=== PATIENT | female | born 1950 | race African-American/Black ===

== ENCOUNTER 2018-03-18 19:33 | Emergency (ER) | payer MEDICARE ==
[~2018-03-18] VITALS: Ht 167.6 cm; Wt 85.7 kg
[~2018-03-18 19:33] MED LIST: ASCO10002 PO; CHOL10003 PO; IBUP200C9 PO; NAPR220T70 PO; WARF-78 PO
[2018-03-18 20:25] LABS: BASO % 1 % (0-3); EOS % 1 % (0-3); HEMOGLOBIN 13.6 g/dL (12.0-15.5); LYMPH # 0.6 x10^3/uL (1.0-4.8); LYMPH % 19 % (24-48); MEAN CORPUSCULAR HEMOGLOBIN 28 pg (25-35); MEAN CORPUSCULAR HGB CONC 33 g/dL (31-37); MEAN CORPUSCULAR VOLUME 84 fL (79-100); MONO # 0.1 x10^3/uL (0.0-1.1); MONO % 2 % (0-9); NEUT # 2.6 x10^3uL (1.8-7.7); NEUT % 78 % (31-73); PLATELET COUNT 245 x10^3/uL (140-400); RED BLOOD COUNT 4.85 x10^6/uL (3.50-5.40); RED CELL DISTRIBUTION WIDTH 15.9 % (11.5-14.5); WHITE BLOOD COUNT 3.3 x10^3/uL (4.0-11.0)
[2018-03-18 20:58] LABS: CALCIUM 9.4 mg/dL (8.5-10.1); CREATININE 1.4 mg/dL (0.6-1.0); GFR 45.1; POTASSIUM 4.2 mmol/L (3.5-5.1)
[2018-03-18] MEDS ORDERED: IV NORMAL SALINE 500ML BAG 500 ML IV ONE (21:15)
[2018-03-18 21:30] VITALS: BP 135/70
--- NOTE | 2018-03-18 21:52 | RAD ---
Examination: VENOUS LOWER EXTREMITY RIGHT History: RLE PAIN, ATTENTION TO POP FOSSA ALSO Comparison/Correlation: None Findings: Right lower extremity venous duplex ultrasound exam was performed. Spectral Doppler, color Doppler, and grayscale imaging was performed. Compression and augmentation utilized. Right common femoral vein, proximal profunda femoris, superficial femoral vein, popliteal vein, posterior tibial veins, and greater saphenous vein are normal. No evidence of thrombus. Normal compressibility, phasicity, and flow. There is no popliteal cyst identified. Popliteal fossa is unremarkable. Impression: No evidence of right lower extremity deep venous thrombus. Electronically signed by: Andrea Delgado MD (03/18/2018 9:49 PM) [facility]
--- NOTE | 2018-03-19 04:25 | PHYS DOC ---
Past Medical History Past Medical History: No Pertinent History Past Surgical History: Hysterectomy Additional Past Surgical Histo: L KNEE, BACK, R FOOT Alcohol Use: Occasionally Drug Use: None Adult General Chief Complaint Chief Complaint: ABNORMAL LABS [facility] HPI Patient is a 67 year old female who presents with right leg pain. Patient states she was evaluated by her primary care physician earlier today. She has some sort of lab work completed which apparently was abnormal. She cannot say what the lab work was but she describes that there was some concern about a possible DVT. The patient had presented complaining of some pain in the right calf and posterior aspect of the right knee. She did not have any trauma. C/o pain primarily in the popliteal fossa but also in the calf muscle. No prior hx of thrombosis. Not on HRT. Patient is known to have osteoarthritis. She does receive injections in the affected knee. No fever or chills. Review of Systems Review of Systems Constitutional: Denies fever or chills Eyes: Denies HENT: Denies Respiratory: Denies Cardiovascular: No additional information not addressed in HPI GI: Denies abdominal pain Integument: Denies rash or skin lesions Neurologic: Denies headache All other systems were reviewed and found to be within normal limits, except as documented in this note. Current Medications Current Medications Current Medications Medications (Trade) Dose Ordered Sig/Xu Start Time Stop Time Status Last Admin Dose Admin Sodium Chloride 500 ml @ 500 mls/hr 1X ONCE 03/18/18 21:15 03/18/18 22:14 DC 03/18/18 21:16 500 MLS/HR Allergies Allergies Allergies Coded Allergies Type Severity Reaction Last Updated Verified nickel Allergy Severe Itching 07/12/14 Yes Physical Exam Physical Exam Constitutional: Well developed, well nourished, no acute distress, non-toxic appearance HENT: Normocephalic, atraumatic, bilateral external ears normal, oropharynx moist Eyes: PERRLA, EOMI, conjunctiva normal Neck: Normal range of motion Cardiovascular:Heart rate regular rhythm, no murmur Lungs & Thorax: Bilateral breath sounds clear to auscultation Skin: Warm, dry, no erythema, no rash Back: No tenderness Extremities: No edema. mild tenderness to manipulation of the right calf and over the popliteal fossa. no swelling. many superficial varicosities present. 2+ dp pulses. + passive ROM without pain worse than baseline Neurologic: Alert and oriented X 3, normal motor function Psychologic: Affect normal Current Patient Data Vital Signs Vital Signs Date Time Temp Pulse Resp B/P (MAP) Pulse Ox O2 Delivery O2 Flow Rate FiO2 03/18/18 21:30 65 17 135/70 (91) 98 Room Air 03/18/18 19:44 99.2 99.2 Lab Values Laboratory Tests Test 03/18/18 19:50 03/18/18 20:40 White Blood Count 3.3 x10^3/uL (4.0-11.0) L Red Blood Count 4.85 x10^6/uL (3.50-5.40) Hemoglobin 13.6 g/dL (12.0-15.5) Hematocrit 41.0 % (36.0-47.0) Mean Corpuscular Volume 84 fL (79-100) Mean Corpuscular Hemoglobin 28 pg (25-35) Mean Corpuscular Hemoglobin Concent 33 g/dL (31-37) Red Cell Distribution Width 15.9 % (11.5-14.5) H Platelet Count 245 x10^3/uL (140-400) Neutrophils (%) (Auto) 78 % (31-73) H Lymphocytes (%) (Auto) 19 % (24-48) L Monocytes (%) (Auto) 2 % (0-9) Eosinophils (%) (Auto) 1 % (0-3) Basophils (%) (Auto) 1 % (0-3) Neutrophils # (Auto) 2.6 x10^3uL (1.8-7.7) Lymphocytes # (Auto) 0.6 x10^3/uL (1.0-4.8) L Monocytes # (Auto) 0.1 x10^3/uL (0.0-1.1) Eosinophils # (Auto) 0.0 x10^3/uL (0.0-0.7) Basophils # (Auto) 0.0 x10^3/uL (0.0-0.2) Sodium Level 144 mmol/L (136-145) Potassium Level 4.2 mmol/L (3.5-5.1) Chloride Level 108 mmol/L (98-107) H Carbon Dioxide Level 27 mmol/L (21-32) Anion Gap 9 (6-14) Blood Urea Nitrogen 20 mg/dL (7-20) Creatinine 1.4 mg/dL (0.6-1.0) H Estimated GFR (Cockcroft-Gault) 45.1 Glucose Level 129 mg/dL (70-99) H Calcium Level 9.4 mg/dL (8.5-10.1) D-Dimer (Nathalie) 0.46 ug/mlFEU (0.00-0.50) Laboratory Tests 03/18/18 19:50 Laboratory Tests 03/18/18 19:50 EKG EKG [] Radiology/Procedures Radiology/Procedures Doppler US of right LE is negative for DVT. No Roberson's cyst seen Course & Med Decision Making Course & Med Decision Making Pertinent Labs and Imaging studies reviewed. (See chart for details) Patient was evaluated in the emergency department to rule out DVT. This diagnosis was not found. The patient has no fever. Her vital signs were normal. She did not have pain and was able to passively range of motion the joint in question. No suspicion for septic joint based on her physical exam and history of present illness. Patient was discharged to home. She was advised to follow- up with her primary care doctor or return to the ER for any new or worsening symptoms. Dragon Disclaimer Dragon Disclaimer This electronic medical record was generated, in whole or in part, using a voice recognition dictation system. Departure Departure Impression: Primary Impression: Primary localized osteoarthritis of left knee Disposition: HOME, SELF-CARE Condition: GOOD Patient Instructions: Knee Pain, Qqgl-ng-Stdr Additional Instructions: Your Creatinine was mildly elevated this evening. This could be from dehydration or from kidney disease. Have this test rechecked at your primary physician's office. Your ultrasound of the right lower extremity did not reveal DVT or cyst. Your d dimer was normal. RAZA LEIVA DO Mar 19, 2018 04:25
== END 2018-03-18 22:30 | disposition home or self-care (01) ==
LOC: ER 19:33
DX: M17.12 Unilateral primary osteoarthritis, left knee (principal); R79.89 Other specified abnormal findings of blood chemistry; Z90.710 Acquired absence of both cervix and uterus; Z91.048 Other nonmedicinal substance allergy status
CPT/HCPCS: 36415; 80048; 85025; 85379; 93971; 99285; J7040; 96360

== ENCOUNTER → 2018-06-01 | Outpatient (CLI) | payer MEDICARE ==
[~2018-06-01] MED LIST changes: +CALC-77 PO; +CALC500T30 PO; +CYCL5TAB PO; +ETOD400T PO; +TRAM50TA PO
[2018-06-01 09:11] LABS: BILIRUBIN,URINE SMALL (NEG); CLARITY,URINE CLEAR; COLOR,URINE YELLOW; NITRITE,URINE NEGATIVE (NEG); PH,URINE 5.5; PROTEIN,URINE NEGATIVE (NEG-TRACE); UROBILINOGEN,URINE 0.2 mg/dL (0.2 mg/dL)
[2018-06-01 09:49] LABS: BASO % 1 % (0-3); EOS # 0.2 x10^3/uL (0.0-0.7); EOS % 5 % (0-3); HEMATOCRIT 36.5 % (36.0-47.0); HEMOGLOBIN 12.2 g/dL (12.0-15.5); LYMPH # 1.8 x10^3/uL (1.0-4.8); LYMPH % 42 % (24-48); MEAN CORPUSCULAR HEMOGLOBIN 28 pg (25-35); MEAN CORPUSCULAR HGB CONC 33 g/dL (31-37); MEAN CORPUSCULAR VOLUME 82 fL (79-100); MONO # 0.3 x10^3/uL (0.0-1.1); MONO % 8 % (0-9); NEUT % 45 % (31-73); PLATELET COUNT 285 x10^3/uL (140-400); RED BLOOD COUNT 4.43 x10^6/uL (3.50-5.40); RED CELL DISTRIBUTION WIDTH 15.5 % (11.5-14.5); WHITE BLOOD COUNT 4.4 x10^3/uL (4.0-11.0)
[2018-06-01 09:58] LABS: PROTHROMBIN TIME PATIENT 13.3 SEC (11.7-14.0)
[2018-06-01 10:08] LABS: ALBUMIN 3.3 g/dL (3.4-5.0); CREATININE 1.1 mg/dL (0.6-1.0); GFR 59.6; POTASSIUM 4.1 mmol/L (3.5-5.1)
[2018-06-01 10:17] LABS: SQUAMOUS EPITHELIAL CELL,UR FEW /LPF
[2018-06-01 10:18] LABS: BACTERIA,URINE FEW /HPF (0-FEW); RBC,URINE OCC /HPF (0-2)
--- NOTE | 2018-06-01 13:58 | EKG ---
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
--- NOTE | 2018-06-01 18:11 | RAD ---
EXAM: PA and Lateral Views of the Chest DATE: 06/01/2018 2:07 PM INDICATION: JOINT PREHAB CLASS-HX TOBACCO ABUSE/ RT. KNEE REPLACEMENT COMPARISON: No Prior FINDINGS/ IMPRESSION: The heart is not enlarged. Mediastinal and hilar contours are normal. No focal parenchymal airspace opacity. A few calcified granuloma are seen within the left lung. No lobar consolidation. No pleural effusion or pneumothorax. Electronically signed by: Brandon Pyle MD (06/01/2018 6:06 PM) [facility]
[2018-06-02 01:31] LABS: HEMOGLOBIN A1C 5.8 % (4.8-5.6)
== END | disposition home or self-care (01) ==
LOC: SURGPAT 14:19
PROVIDERS: ATTEND Orthopaedic Surgery
DX: Z01.818 Encounter for other preprocedural examination (principal); M17.11 Unilateral primary osteoarthritis, right knee; J84.10 Pulmonary fibrosis, unspecified; Z87.891 Personal history of nicotine dependence
CPT/HCPCS: 36415; 71046; 80048; 81001; 82040; 82306; 83036; 85025; 85610; 85651; 85730; 87086; 87641; 93005

== ENCOUNTER 2018-06-16 06:27 | Inpatient (IN) | payer MEDICARE ==
[2018-06-16] VITALS (7 sets, daily range): BP systolic 122–136; BP diastolic 71–79
[~2018-06-16] VITALS: Ht 167.6 cm; Wt 88.5 kg
[~2018-06-16 06:27] MED LIST changes: +HYDROcodone/APAP 7.5/325MG 1 TAB TABLET PO PRN; +MORPHINE SULFATE 5 MG, KETOROLAC 30MG VIAL 30 MG, ROPIVacaine 0.5% PF 60 ML, EPINEPHrin... INT ART ONE; +TRANEXAMIC ACID 1,000 MG in IV NS 50ML -- 1ST BAG INJ ONE
[2018-06-16] MEDS ORDERED: ONDANSETRON PF 4 MG/2 ML VIAL. IV PRN (07:00)
[2018-06-16] MEDS ORDERED: LIDOCAINE 1% PF 2 ML VIAL. ID PRN (07:00)
[2018-06-16] MEDS ORDERED: PROCHLORPERAZINE 10 MG/2 ML VIAL. IV PRN (07:00)
[2018-06-16] MEDS ORDERED: IV RINGERS,LACTATED 1000ML 1,000 ML IV SCH (07:00)
[2018-06-16] MEDS ORDERED: HYDROmorphone 2 MG/ML VIAL IV PRN (07:00)
[2018-06-16] MEDS ORDERED: fentaNYL PF VIAL 100 MCG/2 ML VIAL IV PRN ×3 (07:00→12:45)
[2018-06-16] MEDS ORDERED: TRANEXAMIC ACID 1,000 MG in IV NS 50ML -- 2ND BAG INJ ONE (08:00)
[2018-06-16] MEDS ORDERED: LIDOCAINE 2% PF 5 ML VIAL. ONE (08:46)
[2018-06-16] MEDS ORDERED: fentaNYL PF VIAL 100 MCG/2 ML VIAL ONE ×2 (08:46→12:44)
[2018-06-16] MEDS ORDERED: DEXAMETHASONE SOD PHOS 20 MG/5 ML VIAL. ONE (08:46)
[2018-06-16] MEDS ORDERED: PROPOFOL 20 ML IV ONE (08:46)
[2018-06-16] MEDS ORDERED: ONDANSETRON PF 4 MG/2 ML VIAL. ONE (08:46)
[2018-06-16] MEDS ORDERED: TOBRAMYCIN POWDER 1.2 GM VIAL. ONE (10:14)
[2018-06-16] MEDS ORDERED: VANCOMYCIN 10GM VIAL for OR. ONE (10:14)
[2018-06-16] MEDS ORDERED: VANCOMYCIN 1 GM VIAL. ONE (10:17)
[2018-06-16] MEDS ORDERED: ePHEDrine PF IN SALINE 50 MG/5 ML DISP.SYRIN IV ONE (10:45)
[2018-06-16] MEDS ORDERED: PHENYLEPHRINE 10 MG/ML VIAL. ONE (11:15)
[2018-06-16] MEDS ORDERED: 0.9 % SODIUM CHLORIDE 20 ML VIAL. IJ ONE (11:15)
[2018-06-16] MEDS ORDERED: SEVOFLURANE 61 TO 120 MINUTES. IH ONE (11:16)
--- NOTE | 2018-06-16 12:27 | PDOC4 ---
Operative Note Operative Note Date of Procedure: June 16, 2018 Pre-Op Diagnosis: Unilateral primary osteoarthritis, right knee. M17.11 Post-Op Diagnosis: same Procedure: right total knee arthroplasty with patella resurfacing, CPT 05887 Surgeon: Ileana Sanchez MD Doctor Of Naprapathy: MARCEL Dyson (Annie) Anesthesia: General EBL: 100 mL Specimens Obtained: right knee bone and soft tissue Complications: none Implant Company: [employer] Drains: hemovac plus pain catheter Tourniquet time: 51 Minutes Tourniquet Pressure: 350 mm Hg Indications for Procedure: Arthritis pain unrelieved by nonoperative management Findings: Severe osteoarthritis with bone on bone contact medially with full thickness cartilage loss in the patellofemoral and lateral compartments. The trochlea had a massive cartilage and bone defect. Satisfactory bone quality and tissue quality. Implants used: Size 4 right bicruciate stabilized Journey II BCS Oxinium femoral component, size 4 right Journey nonporous tibial baseplate, size 3-4 10 mm right Journey II BCS XLPE articular insert, 35 mm oval Patsy II resurfacing patellar component Procedure in Detail: The patient was identified in the preoperative holding area, and the correct right lower extremity was marked by me. The patient was taken to the operating room where the patient was anesthetized by the Department of Anesthesia. Preoperative antibiotics were given intravenously. Tranexamic acid 1 g was given intravenously for intraoperative hemostasis. A "time-out" procedure was performed. The patient was positioned supine on the operative table with a tourniquet on the upper right thigh. The right lower limb was thoroughly scrubbed, then sterile surgical prep solution was applied, and the limb was draped in sterile fashion. An impervious stockinet and adhesive drape were used such that the skin was entirely covered. An Arnett leg allison was used. The operating team wore personal exhaust-ventilated hoods. The limb exsanguinated with an Esmarch bandage, and the tourniquet was inflated. A midline skin incision was made with a scalpel using the patella and tibial tubercle as landmarks. Electrocautery was used for hemostasis. My medical assistant dermatology used rake retractors. A medial parapatellar arthrotomy incision was used with extension into the distal quadriceps tendon. The patella was retracted laterally and Hohmann retractors were now used by my medical assistant dermatology. Excess synovium, the menisci, and the cruciate ligaments were resected sharply. The patella was assessed and excess synovium and osteophytes around the patellar articulation were removed. The patella was measured with a caliper, cut freehand with a saw using caliper measurements, sized, and then drilled for an oval three-pegged patella component. A periarticular multimodal ropivacaine anesthetic injection was used in the suprapatellar pouch and distal quadriceps muscle. Whitesides's line and the transepicondylar axis were marked on the femur. An intra-medullary 5 degree cutting guide was pinned to the femur, and a distal femoral cut was made with an oscillating saw. No additional distal femoral resection was required. My medical assistant dermatology held Hohmann retractors and an [facility] retractor to protect the medial and lateral collateral ligaments, the patellar tendon, the skin and the other soft tissues. A posterior referencing guide was applied with external rotation of 3� to match Hunnewell�s line. A 5-in-1 Journey II cutting guide was then applied and pinned to the femur. The posterior, anterior, and all chamfer cuts were made with the oscillating saw. An extramedullary guide was pinned to the tibia and rotational alignment and the planned resection thickness assessed. An external alignment mago was used to verify the planned cut in the varus-valgus plane and regarding posterior slope referencing the tibial tubercle, the tibial shaft, the ankle joint, and the second metatarsal. The upper tibia was cut made with an oscillating saw. My medical assistant dermatology held Hohmann retractors and a posterior cruciate ligament retractor to protect the medial and lateral collateral ligaments, the patellar tendon, the skin, the peroneal nerve and the other soft tissues. The upper tibia was sized with a trial baseplate. The posterior compartment was cleared of osteophytes and loose bodies. The periarticular anesthetic injection was used in the posterior compartment. The box cut for a posterior stabilized component was made. A preliminary reduction was performed with a trial femur, trial tibial baseplate and trial polyethylene. Soft-tissue balancing was now performed, and extension and rotation of the alignments was checked using a guide mago in the tibial trial and a guide pin in the femur. No additional releases were required. The stability was assessed using different thicknesses of tibial articular surface to find satisfactory stability and good range of motion. The rotation of the tibial component was marked on the upper tibia. Final trial reduction was now performed verifying patella tracking and tibiofemoral stability and alignment. The tibia preparation was completed with a drill, saw, and fin punch at the previously noted rotation. The final implants were verified and opened. Outer gloves were changed by the operating team. The bone cuts were washed thoroughly with the Songkick InterPulse device and dried. Two packages of [employer] HV bone cement were mixed in powdered form with Vancomycin 1gm and Tobramycin 1.2 gm, and then vacuum-mixed with the monomer, and placed into a cement gun. The cut surfaces of the bone were thoroughly dried with Silva-tip suction and with laparotomy sponges for cement interdigitation. The final components were cemented into place. An Oxinium (hypoallergenic) femur was used due to her nickel allergy and is essentially nickel-free. The tibial component is titanium and essentially nickel-free. The knee was kept at full extension while the cement hardened, and excess cement was removed. A Betadine lavage was used throughout the surgical exposure, and allowed to sit in contact with the exposed joint surfaces for three minutes while the cement hardened. Tranexamic acid 1 g was redosed intravenously for additional intraoperative hemostasis. The tourniquet was released, and electrocautery was used for hemostasis. A final periarticular anesthetic injection was used for pain relief. A final check of eebrv-ve-blbiru and stability was made, and the polyethylene implant final size was chosen. The polyethylene implant was secured to the tibial baseplate, and the knee was reduced a final time and range of motion and stability was confirmed. Thorough irrigation was used. Hemovac and pain catheter were used.The arthrotomy was closed with interrupted wfnycy-di-cazgl # 1 PDS suture. The arthrotomy incision was then run with #1 STRATAFIX Symmetric PDS Plus Knotless suture. The subcutaneous tissues were reapproximated initially with 2-0 PDS . Next the subcuticular layer was reapproximated in a running fashion with #3-0 Stratafix suture by my medical assistant dermatology. The skin incision was then covered and reinforced with Acticoat, followed by a TERESA single use negative pressure wound therapy dressing. Soft roll and an Barron wrap were applied. Needle and sponge counts were correct. There were no apparent complications. The patient returned to the recovery room in stable condition. ILEANA SANCHEZ MD Jun 16, 2018 12:27
[2018-06-16] MEDS ORDERED: IV NORMAL SALINE 1000ML BAG 1,000 ML IV SCH (12:38)
--- NOTE | 2018-06-16 12:38 | PDOC1 ---
History and Physical Date of Admission Date of Admission DATE: 06/16/18 TIME: 12:28 Identification/Chief Complaint Chief Complaint Right knee osteoarthritis pain Source Source: Chart review, Patient History of Present Illness History of Present Illness This 67-year-old woman has had years of right knee pain. She has a history of medial meniscus surgery approximately 1997. Her PCP Dr. José Son M.D. initiated nonoperative treatment of her knee osteoarthritis with cortisone injection and meloxicam. She didn't feel like the cortisone helped, and she felt like she got side effects from the meloxicam and stopped taking it. She reports a dull ache at nighttime that wakes her up from sleeping and she takes some bdnu-mul-ksrzizy medications to try to get back to sleep. Pain is reported as 12/10 at times. She used to enjoy line dancing but can't do that anymore due to the knee pain. She didn't try physical therapy or bracing. She reports the knee catches especially first thing in the morning when she gets sharp pains. She now has trouble walking any distance but she used to be able to do that. She has a nickel/metal allergy. She had a left total knee arthroplasty with Dr. Lundy in 2014, and the left knee is now her "good knee". Past Surgical History Past Surgical History: Cataract Removal, Total knee replacement, Hysterectomy Family History Family History parents Social History Smoke: Quit ALCOHOL: occassional Current Medications Current Medications Current Medications Morphine Sulfate 5 mg/Ketorolac Tromethamine 30 mg/Ropivacaine 60 ml/ Epinephrine HCl 0.5 mg/Sodium Chloride 100 ml @ 100 mls/hr 1X ONCE INT ART Last administered on 06/16/18at 11:14; Start 06/16/18 at 06:00; Stop 06/16/18 at 06:59; Status DC Ondansetron HCl (Zofran) 4 mg PRN Q6HRS PRN IV NAUSEA/VOMITING; Start 06/16/18 at 07:00; Stop 06/16/18 at 18:00 Fentanyl Citrate (Fentanyl 2ml Vial) 25 mcg PRN Q5MIN PRN IV MILD PAIN; Start 06/16/18 at 07:00; Stop 06/16/18 at 18:00 Fentanyl Citrate (Fentanyl 2ml Vial) 50 mcg PRN Q5MIN PRN IV MODERATE TO SEVERE PAIN; Start 06/16/18 at 07:00; Stop 06/16/18 at 18:00 Morphine Sulfate (Morphine Sulfate) 1 mg PRN Q10MIN PRN IV SEVERE PAIN; Start 06/16/18 at 07:00; Stop 06/17/18 at 06:59 Ringer's Solution 1,000 ml @ 30 mls/hr Q24H IV Last administered on 06/16/18at 07:20; Start 06/16/18 at 07:00; Stop 06/16/18 at 18:59 Lidocaine HCl (Xylocaine-Mpf 1% 2ml Vial) 2 ml PRN 1X PRN ID IV START; Start at 07:00; Stop 06/16/18 at 18:00 Hydromorphone HCl (Dilaudid) 0.5 mg PRN Q10MIN PRN IV SEV PAIN, Second choice; Start 06/16/18 at 07:00; Stop 06/16/18 at 18:00 Prochlorperazine Edisylate (Compazine) 5 mg PACU PRN PRN IV NAUSEA, MRX1; Start 06/16/18 at 07:00; Stop 06/16/18 at 18:00 Acetaminophen/ Hydrocodone Bitart (Lortab 7.5/325) 2 tab 1X PREOP PRN PO PRIOR TO PROCEDURE Last administered on 06/16/18at 07:21; Start 06/16/18 at 06:00; Stop 06/16/18 at 18:00 Cefazolin Sodium/ Dextrose 50 ml @ 100 mls/hr 1X PREOP PRN IV PRIOR TO PROCEDURE Last administered on 06/16/18at 10:36; Start 06/16/18 at 06:00; Stop at 18:00 Tranexamic Acid 1000 mg/Sodium Chloride 60 ml @ 60 mls/hr 1X PERIOP ONCE INJ Last administered on 06/16/18at 11:00; Start 06/16/18 at 06:00; Stop 06/16/18 at 06:59; Status DC Tranexamic Acid 1000 mg/Sodium Chloride 60 ml @ 60 mls/hr 1X PERIOP ONCE INJ Last administered on 06/16/18at 11:51; Start 06/16/18 at 08:00; Stop 06/16/18 at 08:59; Status DC Propofol 20 ml @ As Directed STK-MED ONCE IV ; Start 06/16/18 at 08:46; Stop at 08:48; Status DC Dexamethasone Sodium Phosphate (Decadron) 20 mg STK-MED ONCE .ROUTE ; Start at 08:46; Stop 06/16/18 at 08:48; Status DC Lidocaine HCl (Lidocaine Pf 2% Vial) 5 ml STK-MED ONCE .ROUTE ; Start 06/16/18 at 08:46; Stop 06/16/18 at 08:48; Status DC Ondansetron HCl (Zofran) 4 mg STK-MED ONCE .ROUTE ; Start 06/16/18 at 08:46; Stop 06/16/18 at 08:48; Status DC Fentanyl Citrate (Fentanyl 2ml Vial) 100 mcg STK-MED ONCE .ROUTE ; Start at 08:46; Stop 06/16/18 at 08:48; Status DC Vancomycin HCl (VANCO for OR ONLY) 10 gm STK-MED ONCE .ROUTE ; Start 06/16/18 at 10:14; Stop 06/16/18 at 10:15; Status DC Tobramycin Sulfate (Tobramycin Powder) 1.2 gm STK-MED ONCE .ROUTE Last administered on 06/16/18at 11:12; Start 06/16/18 at 10:14; Stop 06/16/18 at 10:16 ; Status DC Vancomycin HCl (Vancomycin) 1 gm STK-MED ONCE .ROUTE Last administered on at 11:13; Start 06/16/18 at 10:17; Stop 06/16/18 at 10:18; Status DC Ephedrine Sulfate (ePHEDrine PF IN SALINE SYRINGE) 50 mg STK-MED ONCE IV ; Start 06/16/18 at 10:45; Stop 06/16/18 at 10:47; Status DC Phenylephrine HCl (Bruce-Synephrine Inj) 10 mg STK-MED ONCE .ROUTE ; Start at 11:15; Stop 06/16/18 at 11:17; Status DC Sodium Chloride (SODIUM CHLORIDE 20ml) 20 ml STK-MED ONCE IJ ; Start 06/16/18 at 11:15; Stop 06/16/18 at 11:17; Status DC Sevoflurane (Ultane) 60 ml STK-MED ONCE IH ; Start 06/16/18 at 11:16; Stop 06/16 at 11:18; Status DC Active Scripts Active Reported Etodolac 400 Mg Tablet 400 Mg PO BID Calcium + D3 Er Tablet (Calcium Carb & Cit/Vitamin D3) 1 Each Tablet.er 1 Each PO BID Tramadol Hcl 50 Mg Tablet 50 Mg PO Q6HRS PRN Cyclobenzaprine Hcl 5 Mg Tablet 10 Mg PO PRN TID PRN Allergies Allergies: Coded Allergies: nickel (Verified Allergy, Severe, Itching, 06/16/18) ALL METALS CAREN JEWELRY [place] celecoxib (Verified Adverse Reaction, Severe, Nausea and Vomiting, 06/16/18 ) FEELS HIGH meloxicam (Verified Adverse Reaction, Severe, Nausea and Vomiting, 06/16/18 ) FEELS HIGH naproxen (Verified Adverse Reaction, Severe, Nausea and Vomiting, 06/16/18) ibuprofen (Verified Adverse Reaction, Intermediate, Nausea and Vomiting, ) makes her feel "high" ROS General: No: Chills, Night Sweats PSYCHOLOGICAL ROS: No: Anxiety, Depression Eyes: No Blurry vision, No Double vision HEENT: No: Heacaches Hematological and Lymphatic: No: Bleeding Problems, Blood Clots Respiratory: No: Cough, Shortness of breath, SOB with excertion Cardiovascular: No Chest Pain, No Palpitations, No Edema Gastrointestinal: No Nausea, No Vomiting, No Diarrhea, No Constipation Genitourinary: No Dysuria, No Hematuria Musculoskeletal: Yes Joint Pain, Yes Joint Stiffness Skin: No Rash, No Skin Lesion Changes Physical Exam General: Alert, Cooperative, No acute distress HEENT: Atraumatic, EOMI Lungs: Normal air movement Heart: RRR Abdomen: Soft Extremities: No clubbing, No cyanosis, No edema, Normal pulses, Other (The right knee shows her mildly antalgic gait. There is mild varus alignment. No masses. No detectable effusion. Tenderness on the joint lines medial greater than lateral. Range of motion is 2 to 115 degrees. There is crepitus with range of motion, and pain at the extremes of motion. The knee is stable to varus and valgus stress without subluxation or laxity. Muscle strength is normal (5/5) for quadriceps and hamstrings, and muscle tone is normal. The skin is normal with no scars, rashes, lesions or ulcers. Light touch sensation is intact. No edema and no varicosities. Dorsalis pedis pulse is intact and capillary refill is normal.) Skin: No rashes, No breakdown Neuro: Normal speech, Strength at 5/5 X4 ext, Normal tone, Sensation intact Vitals Vitals Vital Signs Date Time Temp Pulse Resp B/P (MAP) Pulse Ox O2 Delivery O2 Flow Rate FiO2 06/16/18 07:21 20 100 Room Air 06/16/18 07:08 98.2 55 98.2 06/16/18 06:56 130/73 Labs Labs Laboratory Tests Test 06/16/18 07:12 Glucose (Fingerstick) 86 mg/dL (70-99) Laboratory Tests Test 06/16/18 07:12 Glucose (Fingerstick) 86 mg/dL (70-99) Images Images There is moderate narrowing of the medial compartment of the right knee joint with moderate marginal spurring. There is moderate spurring at the right patellofemoral articulation. No fracture or dislocation is evident. There appears to be small right knee joint effusion. IMPRESSION: Moderate degenerative change at the right knee with a small associated joint effusion. VTE Prophylaxis Ordered VTE Prophylaxis Devices: Yes VTE Pharmacological Prophylaxi: Yes Assessment/Plan Assessment/Plan She has tried nonoperative treatment for her knee osteoarthritis, but it continues to interfere with her activity. At age 67 and with minimal health history she is an excellent candidate for total knee arthroplasty. I am hopeful that this will get her back to line dancing, and walking for exercise. We discussed risks and benefits. We discussed the potential risks of infection, neurovascular injury, bleeding, blood clots, need for revision surgery, or other potential surgical or anesthetic complications. All of her questions about knee replacement surgery were answered and she desires to proceed at a mutually convenient date. We will plan this likely late in May. Due to the nickel/metal allergy we will use Oxinium and titanium components.She is here today for elective right total knee arthroplasty. ILEANA NUÑEZ MD Jun 16, 2018 12:38
[2018-06-16] MEDS ORDERED: PROCHLORPERAZINE 5 MG TABLET. PO PRN (12:45)
[2018-06-16] MEDS ORDERED: METOCLOPRAMIDE HCL 10 MG/2 ML VIAL. IV PRN (12:45)
[2018-06-16] MEDS ORDERED: diphenhydrAMINE 50 MG/ML VIAL IV PRN (12:45)
[2018-06-16] MEDS ORDERED: oxyCODONE/APAP 5/325 1 TAB TABLET PO PRN ×2 (12:45→13:45)
[2018-06-16] MEDS ORDERED: ZOLPIDEM 5 MG TABLET. PO PRN (12:45)
[2018-06-16] MEDS ORDERED: 0.9 % SODIUM CHLORIDE 10 ML DISP.SYRIN. IV PRN (12:45)
[2018-06-16] MEDS ORDERED: MORPHINE SULFATE 4 MG/ML VIAL. IV PRN ×2 (12:45)
[2018-06-16] MEDS ORDERED: DEXTROSE 50% 25 GM / 50ML DISP.SYRIN. IV PRN (12:45)
[2018-06-16] MEDS ORDERED: traMADol 50 MG TABLET PO PRN (12:45)
[2018-06-16] MEDS ORDERED: CALCIUM CARBONATE 500 MG TAB.CHEW PO PRN (12:45)
[2018-06-16] MEDS ORDERED: PROCHLORPERAZINE 10 MG/2 ML VIAL. ONE (12:51)
[2018-06-16] MEDS ORDERED: MORPHINE SULFATE 4 MG/ML VIAL. ONE (12:51)
[2018-06-16] MEDS: MORPHINE SULFATE 4 MG/ML VIAL. IV PRN ×2 (12:57→13:12)
[2018-06-16] MEDS ORDERED: HYDROcodone/APAP 7.5/325MG 1 TAB TABLET PO PRN (13:45)
[2018-06-16] MEDS ORDERED: CYCLOBENZAPRINE 10 MG TABLET. PO PRN (13:45)
--- NOTE | 2018-06-16 14:32 | RAD ---
EXAM: Right knee, 2 views. HISTORY: Arthroplasty. COMPARISON: 05/14/2018 FINDINGS: 2 views of the right knee are obtained. There is a right knee arthroplasty in expected position. There is surrounding soft tissue gas, joint fluid and a surgical drain due to recent surgery. IMPRESSION: Right knee arthroplasty in expected position. Electronically signed by: Lora Zimmerman MD (06/16/2018 2:28 PM) [facility]
--- NOTE | 2018-06-16 15:05 | NUR ---
received from recovery. she is alert and oriented x 4. daughters come to bedside. iv infusing in her left inner wrist. she has good motion, pulses and sensation bilateral lower extremities. she denies pain at this time. dom wrap is clean dry and intact. given clear liquids at this time.
[2018-06-16] MEDS: FERROUS SULFATE 325 MG TABLET. PO SCH (16:41)
[2018-06-16] MEDS: CALCIUM CARB/VIT D3 500/200 TABLET. PO SCH (16:42)
[2018-06-16] MEDS: fentaNYL PF VIAL 100 MCG/2 ML VIAL IV PRN ×2 (17:36→20:04)
[2018-06-16] MEDS: ONDANSETRON ODT 4 MG TAB.RAPDIS. PO SCH ×2 (18:00→23:53)
[2018-06-16] MEDS: ONDANSETRON PF 4 MG/2 ML VIAL. IV SCH ×2 (18:00→23:35)
[2018-06-16] MEDS: KETOROLAC 30MG VIAL 30 MG, BUPIVACAINE MPF 0.25% 20 ML, EPINEPHrine 0.5 MG in TOTAL VOL... INT ART SCH (18:02)
[2018-06-16] MEDS: ASPIRIN ENTERIC COATED 325 MG TABLET.DR. PO SCH (21:16)
[2018-06-16] MEDS: DICLOFENAC SODIUM 25 MG TABLET.DR PO SCH (21:17)
[2018-06-17] MEDS: HYDROcodone/APAP 7.5/325MG 1 TAB TABLET PO PRN ×6 (01:34→18:53)
[2018-06-17 02:33] VITALS: BP 101/62
[2018-06-17 04:53] LABS: HEMATOCRIT 30.9 % (36.0-47.0); HEMOGLOBIN 9.8 g/dL (12.0-15.5)
[2018-06-17] MEDS: KETOROLAC 30MG VIAL 30 MG, BUPIVACAINE MPF 0.25% 20 ML, EPINEPHrine 0.5 MG in TOTAL VOL... INT ART SCH (05:34)
[2018-06-17] MEDS: ONDANSETRON ODT 4 MG TAB.RAPDIS. PO SCH ×2 (05:40→11:38)
[2018-06-17] MEDS: ONDANSETRON PF 4 MG/2 ML VIAL. IV SCH ×2 (05:40→11:38)
[2018-06-17] MEDS ORDERED: MAGNESIUM HYDROXIDE 2,400 MG/30 ML ORAL.SUSP. PO PRN (06:00)
[2018-06-17 06:18] VITALS: BP 116/69
--- NOTE | 2018-06-17 07:38 | PDOC ---
ORTHO PROGRESS NOTES Subjective Patient states doing well with minimal pain. Post-op Day: 1 Procedure R TKA Vitals Vital Signs Date Time Temp Pulse Resp B/P (MAP) Pulse Ox O2 Delivery O2 Flow Rate FiO2 06/17/18 07:00 20 94 Room Air 06/17/18 06:18 98.7 57 116/69 (85) 98.7 06/16/18 13:12 10.0 Labs Laboratory Tests Test 06/16/18 07:12 06/17/18 03:50 Glucose (Fingerstick) 86 mg/dL (70-99) Hemoglobin 9.8 g/dL (12.0-15.5) Hematocrit 30.9 % (36.0-47.0) Mean Corpuscular Hemoglobin Concent 32 g/dL (31-37) Laboratory Tests Test 06/17/18 03:50 Hemoglobin 9.8 g/dL (12.0-15.5) Hematocrit 30.9 % (36.0-47.0) Mean Corpuscular Hemoglobin Concent 32 g/dL (31-37) Assessment and Plan POD # 1 S/P R TKA dressing dry and intact motor and sensory intact distally moving toes and foot on request PT today. NORMA BALLARD APRN Jun 17, 2018 07:38
[2018-06-17] MEDS: ASPIRIN ENTERIC COATED 325 MG TABLET.DR. PO SCH ×2 (08:15→21:28)
[2018-06-17] MEDS: DICLOFENAC SODIUM 25 MG TABLET.DR PO SCH ×2 (08:15→21:28)
[2018-06-17] MEDS: FERROUS SULFATE 325 MG TABLET. PO SCH ×2 (08:15→17:11)
[2018-06-17] MEDS: SENNOSIDES/DOCUSATE 8.6/50MG TABLET. PO SCH (08:15)
[2018-06-17] MEDS: CALCIUM CARB/VIT D3 500/200 TABLET. PO SCH ×2 (08:15→17:11)
[2018-06-17] MEDS: MULTIVITAMIN with MINERAL TABLET. PO SCH (08:15)
--- NOTE | 2018-06-17 08:40 | NUR ---
During ADL's hemovac accidentally dislodged, dressing in place
[2018-06-17] MEDS ORDERED: MELOXICAM 7.5 MG TABLET PO SCH (09:00)
[2018-06-17 10:12] VITALS: BP 101/56
--- NOTE | 2018-06-17 11:35 | NUR ---
Bleeding from Hemovac site during therapy, IAC discontinued without difficulty, 4x4, ABD, Kerlix applied, tolerated procedure well, returned to therapy session
--- NOTE | 2018-06-17 11:38 | NUR ---
Zofran po/IV held no nausea or vomiting noted
[2018-06-17] MEDS ORDERED: ONDANSETRON ODT 4 MG TAB.RAPDIS. PO PRN (12:00)
[2018-06-17] MEDS ORDERED: ONDANSETRON PF 4 MG/2 ML VIAL. IV PRN (12:00)
--- NOTE | 2018-06-17 12:33 | NUR ---
Refusing pain medication although pain level 4.5-5/ elevated with ice packs, will recheck after afternoon therapy session
--- NOTE | 2018-06-17 12:55 | NUR ---
Dr. Sanchez here to see, agreeable to home health after dismissal, family members at bedside
--- NOTE | 2018-06-17 12:56 | PDOC ---
PROGRESS NOTES Subjective Subjective Doing well. Pain controlled. Objective Vital Signs Vital Signs Date Time Temp Pulse Resp B/P (MAP) Pulse Ox O2 Delivery O2 Flow Rate FiO2 06/17/18 10:12 47 101/56 (71) 06/17/18 07:00 20 94 Room Air 06/17/18 06:18 98.7 98.7 06/16/18 13:12 10.0 Physical Exam Postop dressing dry and intact. Hemovac and pain catheter in place. Thigh and calf soft and nontender with negative Dianna�s sign. Good AROM toes, foot, and ankle, with no sign of neurovascular injury nor compartment syndrome. Labs Laboratory Tests Test 06/16/18 07:12 06/17/18 03:50 Glucose (Fingerstick) 86 mg/dL (70-99) Hemoglobin 9.8 g/dL (12.0-15.5) Hematocrit 30.9 % (36.0-47.0) Mean Corpuscular Hemoglobin Concent 32 g/dL (31-37) Laboratory Tests Test 06/17/18 03:50 Hemoglobin 9.8 g/dL (12.0-15.5) Hematocrit 30.9 % (36.0-47.0) Mean Corpuscular Hemoglobin Concent 32 g/dL (31-37) Imaging Postoperative knee x-rays report reviewed, images independently reviewed. Satisfactory TKA alignment with no apparent complications. Assessment Assessment POD #1 TKA Plan Plan of Care Continue POC including PT and DVT prophylaxis. ILEANA NUÑEZ MD Jun 17, 2018 12:56
--- NOTE | 2018-06-17 14:43 | NUR ---
Stated pain level 12, reinforced need to take medication prior to therapy & to call if pain not related by one Lortab nursing can administer another, legs elevated & ice on knee, family members at bedside
[2018-06-17] MEDS ORDERED: BISACODYL 10 MG SUPP.RECT. PR PRN (16:00)
--- NOTE | 2018-06-17 17:30 | NUR ---
Son assisted her to bed without permission, notified pt/son this is not permissible, call for assistance when needed, bed alarm activated at that time, call light within reach, son at bedside
[2018-06-17 17:36] VITALS: BP 118/80
[2018-06-18 05:56] VITALS: BP 108/73
[2018-06-18 05:59] LABS: HEMATOCRIT 29.6 % (36.0-47.0); HEMOGLOBIN 9.3 g/dL (12.0-15.5)
[2018-06-18] MEDS: HYDROcodone/APAP 7.5/325MG 1 TAB TABLET PO PRN ×4 (09:01→21:33)
[2018-06-18] MEDS: SENNOSIDES/DOCUSATE 8.6/50MG TABLET. PO SCH (09:01)
[2018-06-18] MEDS: MULTIVITAMIN with MINERAL TABLET. PO SCH (09:01)
[2018-06-18] MEDS: ASPIRIN ENTERIC COATED 325 MG TABLET.DR. PO SCH ×2 (09:01→21:32)
[2018-06-18] MEDS: DICLOFENAC SODIUM 25 MG TABLET.DR PO SCH ×2 (09:01→21:32)
[2018-06-18] MEDS: CALCIUM CARB/VIT D3 500/200 TABLET. PO SCH ×2 (09:01→16:47)
[2018-06-18] MEDS: FERROUS SULFATE 325 MG TABLET. PO SCH ×2 (09:01→16:47)
--- NOTE | 2018-06-18 17:11 | PATHOLOGY ---
[facility] Accession Number: [id number] . 01 Material submitted: . BONE AND TISSUE, RIGHT KNEE . 01 Clinical history: . None provided . 02 Diagnosis: Segments of bone and soft tissue, right total knee arthroplasty: - Advanced degenerative arthritis. 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 02 Electronically signed: . Adiel Rosas MD, Pathologist NPI- [id number] . 01 Gross description: . Received in formalin labeled "Constance Hoyt, bone and tissue Rt total knee," are multiple segments of bone, including tibial plateau, measuring 13.5 x 12.9 x 2.3 cm in aggregate dimensions. Soft tissue and meniscus are present. The specimen displays focal eburnation of the articular surfaces. Cellophane Tester bone and soft tissue are submitted in cassette A1, following decalcification. (DAC; 06/17/2018) XDC/XDC . 02 Pathologist provided ICD-10: M17.11 . 02 CPT . 471818, 136674 Specimen Comment: A courtesy copy of this report has been sent to Specimen Comment: [phone], . Specimen Comment: Report sent to / DR SUAREZ Specimen Comment: A duplicate report has been generated due to demographic updates. Performed at: 01 [facility] [address] [facility] [place] [address], [place] [id number] MD Klaus Wang MD Phone: [phone] Performed at: 02 [facility] [address] [place], [place] [id number] MD Adiel Rosas MD Phone: [phone]
[2018-06-18 18:03] VITALS: BP 105/67
--- NOTE | 2018-06-18 20:00 | NUR ---
Patient visiting with family. No complaints verbalized.
--- NOTE | 2018-06-18 21:18 | PDOC ---
PROGRESS NOTES Subjective Subjective Pain controlled. Objective Vital Signs Vital Signs Date Time Temp Pulse Resp B/P (MAP) Pulse Ox O2 Delivery O2 Flow Rate FiO2 06/18/18 18:07 Room Air 06/18/18 18:03 98.4 72 18 105/67 (80) 100 98.4 06/16/18 13:12 10.0 Physical Exam Knee TERESA dressing with spotty drainage only, and slight bleeding from hemovac site. Calf and thigh soft and NT. Good AROM toes, foot and ankle with negative Dianna�s and no sign of neurovascular injury nor compartment syndrome. Pain catheter and hemovac have been removed. Not yet safely ambulating with walker. Labs Preop Hgb was 13.6, now down to 9.3. Acute blood loss anemia. Laboratory Tests Test 06/17/18 03:50 06/18/18 04:55 Hemoglobin 9.8 g/dL (12.0-15.5) 9.3 g/dL (12.0-15.5) Hematocrit 30.9 % (36.0-47.0) 29.6 % (36.0-47.0) Mean Corpuscular Hemoglobin Concent 32 g/dL (31-37) 31 g/dL (31-37) Laboratory Tests Test 06/18/18 04:55 Hemoglobin 9.3 g/dL (12.0-15.5) Hematocrit 29.6 % (36.0-47.0) Mean Corpuscular Hemoglobin Concent 31 g/dL (31-37) Assessment Assessment POD 2 after TKA. Acute blood loss anemia. Asymptomatic, so will observe without transfusion. Plan Plan of Care Continue PT and DVT prophylaxis. Discharge planning for tomorrow. ILEANA NUÑEZ MD Jun 18, 2018 21:17
[2018-06-19] MEDS: HYDROcodone/APAP 7.5/325MG 1 TAB TABLET PO PRN ×3 (01:45→12:22)
[2018-06-19 05:22] LABS: HEMATOCRIT 28.2 % (36.0-47.0); HEMOGLOBIN 9.1 g/dL (12.0-15.5)
[2018-06-19 06:17] VITALS: BP 120/80
[2018-06-19] MEDS: FERROUS SULFATE 325 MG TABLET. PO SCH (07:58)
[2018-06-19] MEDS: CALCIUM CARB/VIT D3 500/200 TABLET. PO SCH (07:58)
[2018-06-19] MEDS: SENNOSIDES/DOCUSATE 8.6/50MG TABLET. PO SCH (07:58)
[2018-06-19] MEDS: DICLOFENAC SODIUM 25 MG TABLET.DR PO SCH (07:58)
[2018-06-19] MEDS: ASPIRIN ENTERIC COATED 325 MG TABLET.DR. PO SCH (07:58)
[2018-06-19] MEDS: MULTIVITAMIN with MINERAL TABLET. PO SCH (07:59)
--- NOTE | 2018-06-19 10:16 | PDOC ---
PROGRESS NOTES Subjective Subjective Doing well, pain controlled. Objective Vital Signs Vital Signs Date Time Temp Pulse Resp B/P (MAP) Pulse Ox O2 Delivery O2 Flow Rate FiO2 06/19/18 07:59 Room Air 06/19/18 06:17 98.2 61 18 120/80 (93) 100 98.2 06/16/18 13:12 10.0 Physical Exam TERESA dressing intact with spotty drainage only. Calf and thigh soft and NT. Good AROM toes, foot and ankle with negative Dianna�s sign and no sign of neurovascular injury nor compartment syndrome. Labs Laboratory Tests Test 06/18/18 04:55 06/19/18 04:30 Hemoglobin 9.3 g/dL (12.0-15.5) 9.1 g/dL (12.0-15.5) Hematocrit 29.6 % (36.0-47.0) 28.2 % (36.0-47.0) Mean Corpuscular Hemoglobin Concent 31 g/dL (31-37) 32 g/dL (31-37) Laboratory Tests Test 06/19/18 04:30 Hemoglobin 9.1 g/dL (12.0-15.5) Hematocrit 28.2 % (36.0-47.0) Mean Corpuscular Hemoglobin Concent 32 g/dL (31-37) Assessment Assessment POD #3 TKA Plan Plan of Care Continue PT and DVT prophylaxis. Discharge this afternoon after therapy to home. ILEANA NUÑEZ MD Jun 19, 2018 10:16
--- NOTE | 2018-06-19 10:36 | PDOC3 ---
Discharge Summary Visit Information Date of Admission: Jun 16, 2018 Date of Discharge: Jun 19, 2018 Admitting Diagnosis: right knee osteoarthritis m17.11 Brief Hospital Course Allergies Allergies Coded Allergies Type Severity Reaction Last Updated Verified nickel Allergy Severe Itching 06/16/18 Yes celecoxib Adverse Reaction Severe Nausea and Vomiting 06/16/18 Yes meloxicam Adverse Reaction Severe Nausea and Vomiting 06/16/18 Yes naproxen Adverse Reaction Severe Nausea and Vomiting 06/16/18 Yes ibuprofen Adverse Reaction Intermediate Nausea and Vomiting 06/16/18 Yes Vital Signs Vital Signs Date Time Temp Pulse Resp B/P (MAP) Pulse Ox O2 Delivery O2 Flow Rate FiO2 06/19/18 10:30 Room Air 06/19/18 06:17 98.2 61 18 120/80 (93) 100 98.2 Lab Results Laboratory Tests Test 06/18/18 04:55 06/19/18 04:30 Hemoglobin 9.3 g/dL (12.0-15.5) 9.1 g/dL (12.0-15.5) Hematocrit 29.6 % (36.0-47.0) 28.2 % (36.0-47.0) Mean Corpuscular Hemoglobin Concent 31 g/dL (31-37) 32 g/dL (31-37) Laboratory Tests Test 06/19/18 04:30 Hemoglobin 9.1 g/dL (12.0-15.5) Hematocrit 28.2 % (36.0-47.0) Mean Corpuscular Hemoglobin Concent 32 g/dL (31-37) Brief Hospital Course 67 old who presented with knee osteoarthritis, for elective total knee arthroplasty. The patient underwent total knee arthroplasty under general anesthesia the day of admission. Perioperative antibiotics and DVT prophylaxis were used. Postoperatively physical therapy and case management were consulted. The patient progressed and is stable for discharge. Discharge Information Condition at Discharge: Stable Follow Up: Weeks Disposition/Orders: D/C to Home Scheduled Calcium Carb & Cit/Vitamin D3 (Calcium + D3 Er Tablet), 1 EACH PO BID, (Reported ) Etodolac (Etodolac), 400 MG PO BID, (Reported) Scheduled PRN Cyclobenzaprine Hcl (Cyclobenzaprine Hcl), 10 MG PO PRN TID PRN for muscle spasms, (Reported) Tramadol Hcl (Tramadol Hcl), 50 MG PO Q6HRS PRN for PAIN, (Reported) Patient Instructions Patient Instructions Patient Instructions Continue to WBAT with walker. Keep dressing dry and intact. F/U with Dr Sanchez in 10-14 days. Call for appointment. Physical therapy for TKA Continue DVT prophylaxis with aspirin. ILEANA SANCHEZ MD Jun 19, 2018 10:36
[2018-06-19] MEDS ORDERED: ASPI325T11 PO (10:47)
[2018-06-19] MEDS ORDERED: FERR325T14 PO (10:49)
[2018-06-19 13:08] VITALS: BP 110/69
--- NOTE | 2018-06-19 14:19 | DISCH ---
DISCHARGE WITH HOME HEALTH DISCHARGE INFORMATION: Condition on Discharge: Stable CODE STATUS: Code Status: Full HOME HEALTH: Face to Face: I certify this patient is under my care and that I, or a nurse practitioner or physician's medical clerical assistant working with me, had a face to face encounter that meets the physician face to face encounter requirements with this patient on []. Physical Therapy For: Evalulation/Treatment Pt Meets Homebound Status: Limited distance walking POST DISCHARGE ORDERS: Activity Instructions for Disc: Activity as tolerated, Progressive ambulation Weight Bearing Status after Di: Full weight bearing Bathing Instructions: Shower-keep dressing dry, No Tub Bath until see Wound/Incision Care: Ice to area for comfort Other wound/incision instructi: Leave TERESA dressing intact. Trim off tubing at 7 days postop. CHECKS AFTER DISCHARGE: Checks after discharge: Check your Temp as needed FOLLOW-UP: Follow Up With: Dr. Sanchez in 10-14 days [phone] TREATMENT/EQUIPMENT ORDERS: Adaptive Equipment Issued: None CERTIFICATION STATEMENT: Certification Statement: Certification Statement: Based on the above finding, I certify that this patient is confined to the home and needs intermittent senior care care, physical therapy and/or speech therapy, or continues to need occupational therapy.~ This patient is under my care, and I have initiated the establishment of the plan of care.~ This patient will be followed by myself or a community physician who will periodically review the plan of care. Home Meds Reported Medications Ferrous Sulfate (FERROUS SULFATE) 325 Mg Tablet, 1 TAB PO DAILY for supplement, #30 TAB 0 Refills 06/19/18 Aspirin (ASPIRIN EC) 325 Mg Tablet.dr, 1 TAB PO BID for blood thinner, #60 TAB 0 Refills 06/19/18 Etodolac (ETODOLAC) 400 Mg Tablet, 400 MG PO BID for pain, TAB 06/03/18 Calcium Carb & Cit/Vitamin D3 (CALCIUM + D3 ER TABLET) 1 Each Tablet.er, 1 EACH PO BID for supplement, TAB.SR 06/03/18 Tramadol Hcl (TRAMADOL HCL) 50 Mg Tablet, 50 MG PO Q6HRS PRN for PAIN, TAB 06/01/18 Cyclobenzaprine Hcl (CYCLOBENZAPRINE HCL) 5 Mg Tablet, 10 MG PO PRN TID PRN for muscle spasms, TAB 06/01/18 ILEANA SANCHEZ MD Jun 19, 2018 14:19
--- NOTE | 2018-06-19 16:07 | NUR ---
Discharge instructions given with prescription. Answered questions and concerns. Pt verbalized understanding. Pt discharged home accompanied by son.
== END 2018-06-19 16:07 | disposition home health service (06) | DRG 470 ==
LOC: OPSVCIP 06:27 → 4 SOUTHEST 14:24
PROVIDERS: ADMIT Orthopaedic Surgery; ATTEND Orthopaedic Surgery
PROC: 0SRC069 Replacement of Right Knee Joint with Oxidized Zirconium on Polyethylene Synthetic Substitute, Cemented, Open Approach (ICD-10-PCS; principal; 2018-06-16 09:45)
DX: M17.11 Unilateral primary osteoarthritis, right knee (principal); D62 Acute posthemorrhagic anemia; Z96.652 Presence of left artificial knee joint; Z88.8 Allergy status to other drugs, medicaments and biological substances; Z90.710 Acquired absence of both cervix and uterus; Z98.49 Cataract extraction status, unspecified eye; Z87.891 Personal history of nicotine dependence; Z91.048 Other nonmedicinal substance allergy status
CPT/HCPCS: 36415; 73560; 82962; 85014; 85018; 86850; 86900; 86901; 88305; 88311; A7015; C1713; J0171; J0696; J0780; J1100; J1885; J2001; J2270; J2405; J2704; J2795; J3010; J3260; J3370; J3490; J7030; J7120; 97116; 97150; 97530; 97535; A4461; C1769; G0378

== ENCOUNTER → 2019-04-13 | Outpatient (CLI) | payer MEDICARE ==
[~2019-04-13] MED LIST changes: +ASPI325T11 PO; +FERR325T14 PO; -HYDROcodone/APAP 7.5/325MG 1 TAB TABLET PO PRN; -MORPHINE SULFATE 5 MG, KETOROLAC 30MG VIAL 30 MG, ROPIVacaine 0.5% PF 60 ML, EPINEPHrin... INT ART ONE; -TRANEXAMIC ACID 1,000 MG in IV NS 50ML -- 1ST BAG INJ ONE
--- NOTE | 2019-04-13 15:50 | CARD ---
MR#: [id number] Date of Study: 04/13/2019 Ordering Physician: RANOL SNYDER, Referring Physician: Mireya MALDONADO: Digna Helton APPROVED REPORT EXAM: Two-dimensional and M-mode echocardiogram with Doppler and color Doppler. Other Information Quality : AverageHR: 55bpm INDICATION Cardiomegaly 2D DIMENSIONS RVDd2.6 (2.9-3.5cm)Left Atrium(2D)3.1 (1.6-4.0cm) IVSd1.3 (0.7-1.1cm)Aortic Root(2D)2.5 (2.0-3.7cm) LVDd4.7 (3.9-5.9cm)LVOT Diameter2.3 (1.8-2.4cm) PWd1.1 (0.7-1.1cm)LVDs2.9 (2.5-4.0cm) FS (%) 37.8 %SV70.6 ml LVEF(%)67.8 (>50%) Aortic Valve AoV Peak Oscar.145.0cm/sAoV VTI28.4cm AO Peak GR.8.4mmHgLVOT Peak Oscar.104.7cm/s AO Mean GR.4mmHgAVA (VMAX)2.99cm2 Mitral Valve MV E Tthdiulv23.1cm/sMV E Peak Gr.3mmHg MV DECEL [id number] A Nglijzwl68.0cm/s MV E Mean Gr.1mmHgE/A Ratio0.8 Pulmonary Valve PV Peak Wonlykpw61.4cm/s Tricuspid Valve RAP [id number] Pulmonary Vein S1 Lzxekmqg75.4cm/sD2 Yxjhtkva96.0cm/s LEFT VENTRICLE The left ventricle is normal size. There is borderline to mild septal left ventricular hypertrophy. T he left ventricular systolic function is normal and the ejection fraction is within normal range. The Ejection Fraction is 60-65%. There is normal LV segmental wall motion. Transmitral Doppler flow selwyn karthik is Grade I-abnormal relaxation pattern. RIGHT VENTRICLE The right ventricle is normal size. The right ventricular systolic function is normal. ATRIA The left atrium size is normal. The right atrium size is normal. The interatrial septum is intact wit h no evidence for an atrial septal defect or patent foramen ovale as noted on 2-D or Doppler imaging. AORTIC VALVE The aortic valve is calcified but opens well. 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 Doppler and Color Flow revealed no significant aortic regurgitation. There is no signific ant aortic valvular stenosis. MITRAL VALVE The mitral valve is calcified but opens well. There is no evidence of mitral valve prolapse. There is no mitral valve stenosis. Doppler and Color-flow revealed trace mitral regurgitation. TRICUSPID VALVE The tricuspid valve is normal in structure and function. Doppler and Color Flow revealed trace tricus pid regurgitation. There is no tricuspid valve stenosis. PULMONIC VALVE Doppler and Color Flow revealed no pulmonic valvular regurgitation. There is no pulmonic valvular andrea nosis. GREAT VESSELS The aortic root is normal in size. The ascending aorta is normal in size. The IVC is normal in size a nd collapses >50% with inspiration. PERICARDIAL EFFUSION There is no pleural effusion. There is no evidence of significant pericardial effusion. Critical Notification Critical Value: No <Conclusion> The left ventricular systolic function is normal and the ejection fraction is within normal range. Th e Ejection Fraction is 60-65%. There is normal LV segmental wall motion. The aortic valve is calcified but opens well. 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 Signed by : Andreas Su, Electronically Approved : 04/13/2019 15:49:52
== END | disposition home or self-care (01) ==
LOC: ECHO 14:50
PROVIDERS: ATTEND Internal Medicine Cardiovascular Disease
DX: I08.0 Rheumatic disorders of both mitral and aortic valves (principal)
CPT/HCPCS: 93306

== ENCOUNTER → 2019-11-24 | Outpatient (CLI) | payer MEDICARE ==
[~2019-11-24] MED LIST changes: -WARF-78 PO; +WARF5TAB2 PO
--- NOTE | 2019-11-24 17:33 | CARD ---
MR#: [id number] Date of Study: 11/24/2019 Ordering Physician: ARNOL SNYDER, Referring Physician: ARNOL SNYDER Tech: Cris Ruff RDCS APPROVED REPORT EXAM: Two-dimensional and M-mode echocardiogram with Doppler and color Doppler. Other Information Quality : Good INDICATION Cardiomegally 2D DIMENSIONS RVDd3.6 (2.9-3.5cm)Left Atrium(2D)3.6 (1.6-4.0cm) IVSd0.8 (0.7-1.1cm)Aortic Root(2D)2.9 (2.0-3.7cm) LVDd4.9 (3.9-5.9cm)LVOT Diameter2.0 (1.8-2.4cm) PWd0.8 (0.7-1.1cm)LVDs3.2 (2.5-4.0cm) FS (%) 33.7 %SV70.0 ml LVEF(%)62.3 (>50%) Aortic Valve AoV Peak Oscar.137.5cm/sAoV VTI26.2cm AO Peak GR.7.6mmHgLVOT Peak Oscar.125.3cm/s AO Mean GR.4mmHgAVA (VMAX)2.96cm2 ZOIE (VTI)3.20cm2 Mitral Valve MV E Hbszkvxw61.8cm/sMV DECEL [id number] MV A Xkurjevk22.8cm/sE/A Ratio0.6 Tricuspid Valve TR P. Wnxmkdcf221bj/sRAP CVEALGQF9quBi TR Peak Gr.06kdLrDNMG31ygCh Pulmonary Vein S1 Rblnrznw28.0cm/sD2 Ncutaicg59.9cm/s LEFT VENTRICLE The left ventricle is normal size. There is normal left ventricular wall thickness. The left ventricu lar systolic function is normal and the ejection fraction is within normal range. The Ejection Fracti on is 55-60%. There is normal LV segmental wall motion. Transmitral Doppler flow pattern is Grade I-a bnormal relaxation pattern. RIGHT VENTRICLE The right ventricle is normal size. The right ventricular systolic function is normal. ATRIA The left atrium size is normal. The right atrium size is normal. The interatrial septum is intact wit h no evidence for an atrial septal defect or patent foramen ovale as noted on 2-D or Doppler imaging. AORTIC VALVE The aortic valve is calcified but opens well. Doppler and Color Flow revealed no significant aortic r egurgitation. There is no significant aortic valvular stenosis. MITRAL VALVE The mitral valve is normal in structure and function. There is no evidence of mitral valve prolapse. There is no mitral valve stenosis. Doppler and Color-flow revealed trace mitral regurgitation. TRICUSPID VALVE The tricuspid valve is normal in structure and function. Doppler and Color Flow revealed trace to mil d tricuspid regurgitation. The PA pressure was estimated at 24 mmHg. There is no tricuspid valve sten osis. PULMONIC VALVE The pulmonary valve is normal in structure and function. Doppler and Color Flow revealed mild pulmoni c valvular regurgitation. There is no pulmonic valvular stenosis. GREAT VESSELS The aortic root is normal in size. The ascending aorta is mildly dilated at 3.3 cm. The IVC is normal in size and collapses >50% with inspiration. PERICARDIAL EFFUSION There is no evidence of significant pericardial effusion. Critical Notification Critical Value: No <Conclusion> The left ventricular systolic function is normal and the ejection fraction is within normal range. Th e Ejection Fraction is 55-60%. There is normal LV segmental wall motion. Signed by : Andreas Su, Electronically Approved : 11/24/2019 17:32:30
== END ==
LOC: ECHO 12:58
PROVIDERS: ATTEND Internal Medicine Cardiovascular Disease
DX: I08.8 Other rheumatic multiple valve diseases (principal)
CPT/HCPCS: 93306

== ENCOUNTER → 2020-05-25 | Outpatient (CLI) | payer MEDICARE ==
[~2020-05-25] MED LIST changes: +ASCO100019 PO; -ASCO10002 PO; -ETOD400T PO; +ETOD400T3 PO
--- NOTE | 2020-05-25 13:08 | RAD ---
EXAM: Right lower extremity sonogram. HISTORY: Mass.. TECHNIQUE: Perez scale and color Doppler sonographic imaging of the right knee soft tissues at the sit e of palpable concern was performed. COMPARISON: None. FINDINGS: There is superficial thrombophlebitis involving the lateral right knee at the site of palpa ble concern. No mass or fluid collection is seen. IMPRESSION: Lateral right knee superficial thrombophlebitis. Electronically signed by: Lora Zimmerman MD (05/25/2020 1:05 PM) [id number]
== END ==
LOC: US 12:01
PROVIDERS: ATTEND Orthopaedic Surgery
DX: R22.41 Localized swelling, mass and lump, right lower limb (principal); I80.3 Phlebitis and thrombophlebitis of lower extremities, unspecified
CPT/HCPCS: 76882

== ENCOUNTER → 2020-11-30 | Outpatient (CLI) | payer MEDICARE ==
[~2020-11-30] MED LIST changes: +REGADENOSON 0.4 MG/5 ML DISP.SYRIN. IV ONE
--- NOTE | 2020-11-30 16:24 | RAD ---
MR#: [id number] Date of Study: 11/30/2020 Ordering Physician: ARNOL SNYDER, Referring Physician: SASHA MALDONADO Tech: FRANCISCO Chong ARRT (R) (N) APPROVED REPORT Test Type: Pharmacological Stress Nurse/Tech: Kathya Leos R.N. Test Indications: cardiomegaly Cardiac History: heart disease Medications: see ehr Medical History: see ehr Resting ECG: SR Resting Heart Rate: 60 bpm Resting Blood Pressure: 117/60mmHg Pretest Chest Pain: No chest pain Nurse/Tech Notes lungs cta, heart tones regular Consent: The procedure was explained to the patient in lay terms. Informed consent was witnessed. Byron eout was entered into [email or web address]. History and Stress Test performed by RT Jonathon GallardoR) (N) Pharm. Details Pharmacologic stress testing was performed using 0.4mg per 5ml of regadenoson given intravenously ove r 7-10 seconds. Stress Symptoms No chest pain or symptoms. POST EXERCISE Reason for Termination: Infusion complete Target HR: No Max HR: 90 bpm Max Blood Pressure: 114/48mmHg Chest Pain: No. Arrhythmia: No. ST Change: No. INTERPRETATION Stress EKG Conclusion: Baseline EKG showed sinus rhythm. No ischemic changes at peak stress. No arr hythmias. Imaging Protocol IMAGE PROTOCOL: Rest Tc-99m/stress Tc-99m 1 day Rest: Stress: Viability: Radiopharm.Tc99m IhpajryoeYw02n Sestamibi Dose10.5mCi 32.5mCi Img Date 11/30/2020 11/30/2020 Inj-Img [id number]. 60min. Rest Admin Site:IV - Right AntecubitalAdministrator:FRANCISCO Chong ARRT (R)(N) Stress Admin Site: IV - Right AntecubitalAdministrator: RT Vishnu Gallardo)(N) STRESS DATA End Diast. Vol.97.0mlAv. Heart Rate69.0bpm End Syst. Vol.25.0mlCO Index BSA0.0L/min Myocardial Jitd110.0gEject. Evrpzngb79.0% Stress Rates Pk. Fill Rate2.70EDV/secLVtime Pk. Fill 226.43msec Pk. Empty Rate4.07ESV/secLVtime Pk. Riupy628.30msec 05/21 Pk. Fill1.14EDV/sec Stress Scores Regional WT0.00Summed WT0.00 Regional WM0.00Summed WM0.00 Study quality was good. Left Ventricular size was Normal at Rest and Stress. Lung uptake was . Left Ventricular ejection fraction is 70%. The rest and stress images show normal perfusion, normal contraction and thickening. LV Perf. Quant 17 Seg. SSS0.00 17 Seg. SRS0.00 17 Seg. SDS0.00 Stress Defect Extent (% LAD)0.00Rest Defect Extent (% LAD)0.00Rev. Defect Extent (% LAD)0.00 Stress Defect Extent (% LCX) 0.00Rest Defect Extent (% LCX)0.00Rev. Defect Extent (% LCX)0.00 Stress Defect Extent (% RCA)0.00Rest Defect Extent (% RCA)0.00Rev. Defect Extent (% RCA)0.00 Stress Defect Extent (% JESSY)0.00Rest Defect Extent (% JESSY)0.40Rev. Defect Extent (% JESSY)0.00 Conclusion 1. Regadenoson cardioisotope stress test did not show any evidence of ischemia or infarct. 2. Normal left ventricular systolic function with ejection fraction calculated at 70%. 3. Low risk for cardiac events. Signed by : Arnol Snyder, Electronically Approved : 11/30/2020 16:23:43
--- NOTE | 2020-11-30 16:59 | CARD ---
MR#: [id number] Date of Study: 11/30/2020 Ordering Physician: ARNOL TEE, Referring Physician: Mireya MALDONADO: Rodolfo Andino [facility] [[email or web address]] APPROVED REPORT EXAM: Two-dimensional and M-mode echocardiogram with Doppler and color Doppler. Other Information Quality : AverageHR: 58bpm Rhythm : NSR INDICATION Cardiomegaly 2D DIMENSIONS Left Atrium(2D)4.4 (1.6-4.0cm)IVSd1.1 (0.7-1.1cm) Aortic Root(2D)3.8 (2.0-3.7cm)LVDd4.7 (3.9-5.9cm) LVOT Diameter2.1 (1.8-2.4cm)PWd1.1 (0.7-1.1cm) LVDs2.6 (2.5-4.0cm)FS (%) 44.0 % SV77.5 mlLVEF(%)75.2 (>50%) Aortic Valve AoV Peak Oscar.133.0cm/sAoV VTI33.7cm AO Peak GR.7.1mmHgLVOT VTI 20.96cm AO Mean GR.4mmHg Mitral Valve MV E Zncwlrhl90.3cm/sMV E Peak Gr.3mmHg MV DECEL [id number] A Dnpsdahj52.9cm/s MV E Mean Gr.1mmHgE/A Ratio0.8 TDI Lateral E' P. V6.05cm/sMedial E' P. V6.82cm/s E/Lateral E'10.3E/Medial E'9.1 Tricuspid Valve TR P. Aouligye941ms/sTR Peak Gr.19mmHg Pulmonary Vein S1 Jwvdjwoo05.3cm/sS2 Bguuifie89.17cm/s D2 Exutlqzv19.2cm/s LEFT VENTRICLE The left ventricle is normal size. There is normal left ventricular wall thickness. The left ventricu lar systolic function is normal. The ejection fraction is 60-65%. There is normal LV segmental wall m otion. Transmitral Doppler flow pattern is Grade I-abnormal relaxation pattern. No left ventricle thr ombus noted on this study. There is no ventricular septal defect visualized. There is no left ventric ular aneurysm. There is no mass noted in the left ventricle. RIGHT VENTRICLE The right ventricle is normal size. There is normal right ventricular wall thickness. The right ventr icular systolic function is normal. ATRIA The left atrium is mildly dilated. The right atrium size is normal. The interatrial septum is intact with no evidence for an atrial septal defect or patent foramen ovale as noted on 2-D or Doppler imagi ng. AORTIC VALVE The aortic valve is calcified but opens well. The aortic valve is moderately thickened but opens well . Doppler and Color Flow revealed no significant aortic regurgitation. There is no significant aortic valvular stenosis. There is no aortic valvular vegetation. MITRAL VALVE The mitral valve is normal in structure and function. There is no evidence of mitral valve prolapse. There is no mitral valve stenosis. Doppler and Color-flow revealed mild mitral regurgitation. TRICUSPID VALVE The tricuspid valve is normal in structure and function. Doppler and Color Flow revealed trace to mil d tricuspid regurgitation. There is no tricuspid valve prolapse or vegetation. There is no tricuspid valve stenosis. PULMONIC VALVE The pulmonary valve is normal in structure and function. Doppler and Color Flow revealed trace to mil d pulmonic valvular regurgitation. There is no pulmonic valvular stenosis. GREAT VESSELS The aortic root is upper limit of normal in size The ascending aorta is normal in size. The pulmonary artery is normal. The IVC is normal in size and collapses >50% with inspiration. PERICARDIAL EFFUSION There is no pleural effusion. There is no evidence of significant pericardial effusion. Critical Notification Critical Value: No <Conclusion> The left ventricular systolic function is normal. The ejection fraction is 60-65%. There is normal LV segmental wall motion. Transmitral Doppler flow pattern is Grade I-abnormal relaxation pattern. Mild mitral regurgitation. Trace to mild tricuspid regurgitation. There is no evidence of significant pericardial effusion. Signed by : Arnol Tee, Electronically Approved : 11/30/2020 16:58:56
== END ==
LOC: NM 08:29
PROVIDERS: ATTEND Internal Medicine Cardiovascular Disease
DX: I08.8 Other rheumatic multiple valve diseases (principal)
CPT/HCPCS: 78452; 93017; 93306; A9500; J2785